=== PATIENT | male | born 1990 | race Caucasian/White ===

== ENCOUNTER 2025-03-04 18:40 | Emergency (ER) | payer BC ==
[2025-03-04] MEDS ORDERED: Sodium Chloride 0.9% 10 ML Syringe FLUSH PRN (19:06)
[2025-03-04 19:15] LABS: HEMATOCRIT 42.3 % (38.4-49.7); HEMOGLOBIN 15.4 g/dL (12.9-16.9); MEAN CORPUSCULAR HEMOGLOBIN 31.6 pg (31.6-35.5); MEAN CORPUSCULAR HGB CONC 36.4 g/dL (31.6-35.5); MEAN CORPUSCULAR VOLUME 86.7 fL (81.4-99.0); RED BLOOD CELL COUNT 4.88 M/uL (4.14-5.76); WHITE BLOOD CELL COUNT,WBC 13.3 K/uL (3.2-11.0)
[2025-03-04] MEDS: Sodium Chloride 0.9% 500 ML IV ONE (19:19)
[2025-03-04] MEDS: Ondansetron 4 MG/2 ML SDV IVPUSH ONE (19:20)
[2025-03-04] MEDS: Sodium Chloride 0.9% 1,000 ML IV ONE ×2 (19:20→20:25)
[2025-03-04 19:32] LABS: ANION GAP 15.2 mmol/L (5.0-14.0); CALCIUM 9.4 mg/dL (8.5-10.1); EST CRCL DRUG DOSING (CG) 101.11 mL/min; POTASSIUM,K 3.2 mmol/L (3.6-5.2)
[2025-03-04] MEDS: Potassium Chloride 20 MEQ Tab.ER PO ONE (19:58)
[2025-03-04 21:14] LABS: BASOPHILS ABSOLUTE AUTO 0.04 K/uL (0.00-0.10); BASOPHILS PERCENT AUTO 0.3 % (0.1-1.3); EOSINOPHILS ABSOLUTE AUTO 0.02 K/uL (0.00-0.40); EOSINOPHILS PERCENT AUTO 0.1 % (0.0-5.4); HEMATOCRIT 38.3 % (38.4-49.7); HEMOGLOBIN 13.6 g/dL (12.9-16.9); IMMATURE GRAN ABSOLUTE AUTO 0.04 K/uL (0.00-0.23); IMMATURE GRAN PERCENT AUTO 0.3 % (0.0-0.7); LYMPHOCYTES ABSOLUTE AUTO 1.23 K/uL (0.8-3.3); LYMPHOCYTES PERCENT AUTO 8.9 % (11.4-47.7); MEAN CORPUSCULAR HEMOGLOBIN 31.6 pg (31.6-35.5); MEAN CORPUSCULAR HGB CONC 35.5 g/dL (31.6-35.5); MEAN CORPUSCULAR VOLUME 89.1 fL (81.4-99.0); MONOCYTES ABSOLUTE AUTO 0.68 K/uL (0.20-0.90); MONOCYTES PERCENT AUTO 4.9 % (3.3-12.6); NEUTROPHILS ABSOLUTE AUTO 11.77 K/uL (1.0-7.6); NEUTROPHILS PERCENT AUTO 85.5 % (40.0-78.1); PLATELET COUNT,PLT 215 K/uL (130-375); WHITE BLOOD CELL COUNT,WBC 13.8 K/uL (3.2-11.0)
[2025-03-04 21:28] LABS: CALCIUM 8.5 mg/dL (8.5-10.1); CREATININE 0.9 mg/dL (0.8-1.3); EST CRCL DRUG DOSING (CG) 112.35 mL/min; POTASSIUM,K 3.4 mmol/L (3.6-5.2)
[2025-03-04 21:29] LABS: ANION GAP 10.4 mmol/L (5.0-14.0)
[2025-03-04] MEDS: Magnesium Oxide 400 MG Tab PO ONE (21:30)
== END 2025-03-04 22:20 | disposition home or self-care (01) ==
LOC: JP.ED 18:40
DX: E86.0 Dehydration (principal); D72.829 Elevated white blood cell count, unspecified; Z86.16 Personal history of COVID-19
CPT/HCPCS: 36415; 80048; 83605; 83735; 85025; 85027; 96361; 96374; 99284; 99284-25; A9270-GY; J2405; J7030